=== PATIENT | female | born 1995 | race Caucasian/White ===

== ENCOUNTER 2022-08-13 13:35 | Emergency (ER) | payer OTHER, SELFPAY ==
[2022-08-13 13:41] VITALS: BP 107/70; PULSE 100; RESP 18; TEMP 36.6; O2SAT 100
--- NOTE | 2022-08-13 15:14 | ED.PREGNANCY ---
HPI - General Chief complaint: [employer] Stated complaint: needs to be checked Time Seen by Provider: 08/13/22 14:18 History of Present Illness HPI Narrative: 27-year-old female presents to the emergency room for a bunch of pills and a shot in my butt . Patient states that her ex-boyfriend went to the emergency room because he had green-yellow discharge coming from his penis . Patient states that she continues to have intercourse with him afterwards. Patient admits to not using any kind of control, and does not try to get . Patient states that her last menstrual cycle was over 1 month ago. Patient denies any dysuria or vaginal discharge, vaginal bleeding or abdominal pain. Related Data Allergies Allergy/AdvReac Type Severity Reaction Status Date / Time No Known Allergies Allergy Unknown Verified 08/13/22 15:27 Review of Systems Review of Systems: CONSTITUTIONAL: Denies fever, chills, or sweats. EYES: Denies visual changes, redness, or discharge. ENT: Denies rhinorrhea, congestion, sore throat, or otalgia. CARDIOVASCULAR: Denies chest pain, palpitations, or edema. RESPIRATORY: Denies cough or dyspnea. GASTROINTESTINAL: Denies abdominal pain, nausea, vomiting, or diarrhea. GENITOURINARY: Denies dysuria or hematuria. SKIN: Denies rash or itching. MUSCULOSKELETAL: Denies back pain, joint pain, or myalgia. NEUROLOGIC: Denies headache, numbness, dizziness, or weakness. PSYCHIATRIC: Denies anxiety or depression. [facility] Surgical History Surgical History History of nasal surgery Social History Social History Gender identity (if verbalized by the patient): Female Exam Narrative: GENERAL: Well-appearing, well-nourished, no physical limitations, and in no acute distress. HEAD: Normocephalic, atraumatic. CHEST: Clear to auscultation. No respiratory distress. No wheezes rales or rhonchi. HEART: Regular rate and rhythm. No murmur heard. Normal peripheral pulses. ABDOMEN: Soft, nontender, nondistended, normal active bowel sounds. : Normal external female exam. Moderate amount of thick white discharge. Cervical os is pink and closed. No masses or lesions tenderness. No CMT EXTREMITIES: Normal range of motion. No edema. No clubbing or cyanosis SKIN: Warm, dry, no rash. No noted wounds NEURO: No focal deficits. Alert and oriented x3. MAEW. CN's II-XI intact bilaterally, normal gait PSYCH: Cooperative. Normal mood and affect. Course Vital Signs Vital signs: Vital Signs Temperature 36.6 C 08/13/22 13:41 Pulse Rate 100 08/13/22 13:41 Respiratory Rate 18 08/13/22 13:41 Blood Pressure 107/70 08/13/22 13:41 Pulse Oximetry 100 08/13/22 13:41 Temperature 36.6 C 08/13/22 13:41 Pulse Rate 100 08/13/22 13:41 Respiratory Rate 18 08/13/22 13:41 Blood Pressure 107/70 08/13/22 13:41 Pulse Oximetry 100 08/13/22 13:41 Discharge Plan Discharge Clinical Impression: Exposure to STD Patient Disposition: Home, Self-Care Condition: Stable Instructions: Antibiotic Form, Sexually Transmitted Diseases (ED) Prescriptions: New doxycycline monohydrate 100 mg capsule 100 mg PO BID 7 Days Qty: 14 0RF No Action ibuprofen [IBU] 600 mg tablet 600 mg PO Q6H PRN (Reason: fever or pain) Qty: 5 0RF Follow-up/Referrals: UNKNOWN,DOCTOR [Primary Care Provider] - Time of Disposition: 16:02
[2022-08-13] MEDS: metroNIDAZOLE 250 MG TABLET 2000 MG PO (16:20)
[2022-08-13] MEDS: cefTRIAXone 1 GM VIAL 0.5 GM IM (16:21)
[2022-08-13] MEDS: DOXYCYCLINE HYCLATE 100 MG TABLET PO (16:21)
[2022-08-13 16:29] LABS: Add Urine Microscopic? YES; Appearance Urine Clear (Clear); Bacteria Urine Trace /hpf; Bilirubin Urine Negative (Negative); Blood Urine Negative (Negative); Color Urine Yellow (Yellow); Glucose Urine UA Negative (Negative); Ketones Urine Negative (Negative); Leukocyte Esterase Ur Negative LEU/UL (Negative); Mucus Urine Heavy /lpf; Nitrate Urine Negative (Negative); Protein Urine 1+ mg/dL (Negative); RBC Urine 0-2 /hpf (0-2); Specific Grav Ur 1.024 (1.001-1.035); Squamous Epithelial Cell Urine Rare /hpf (Few); Urobilinogen Urine Negative mg/dL (<2.0); WBC Urine 0-3 /hpf
== END 2022-08-13 16:30 | disposition home or self-care (01) ==
LOC: ANHED 16:14
PROVIDERS: Emergency Provider Nurse Practitioner Family
DX: Z20.2 Contact with and (suspected) exposure to infections with a predominantly sexual mode of transmission (principal)
CPT/HCPCS: 81001; 87491; 87591; 87808; 96372; 99284; A9270; J0696

== ENCOUNTER 2023-10-19 20:18 | Emergency (ER) | payer OTHER, SELFPAY ==
[2023-10-19 20:21] VITALS: BP 123/82; PULSE 110; RESP 16; TEMP 36.4; O2SAT 100
[2023-10-19 21:43] LABS: Appearance Urine Clear (Clear); Bacteria Urine None Seen /hpf; Bilirubin Urine Negative (Negative); Blood Urine Negative (Negative); Color Urine Yellow (Yellow); Glucose Urine UA Negative (Negative); Ketones Urine Negative (Negative); Leukocyte Esterase Ur Negative LEU/UL (Negative); Nitrate Urine Negative (Negative); Non Pathogenic Casts 0-2; Protein Urine 1+ mg/dL (Negative); RBC Urine 0-2 /hpf (0-2); Specific Grav Ur 1.022 (1.001-1.035); Squamous Epithelial Cell Urine Occasional /hpf (Few); Urobilinogen Urine 0.2 mg/dL (<2.0); WBC Urine 0-5 /hpf; pH Urine 6.5 (5.0-9.0)
[2023-10-19 21:54] LABS: Add Urine Microscopic? YES
[2023-10-19 23:09] LABS: Chlamydia trachomatis NOT DETECTED (NOT DETECTE); Neisseria gonorrhoeae PCR DETECTED (NOT DETECTE)
--- NOTE | 2023-10-19 23:31 | ED.GENADULT ---
HPI - General Adult General Chief complaint: Recheck/Abnormal Lab/Rx Stated complaint: std check Time Seen by Provider: 10/19/23 21:18 Source: patient Mode of arrival: ambulatory Limitations: no limitations History of Present Illness HPI narrative: Patient is a 28-year-old female who presents to the ED for STD check. Patient reports she has been sexually active with the father of her children who has been having penile discharge over the last several days. Wanting to be evaluated for STDs. Patient denies any symptoms. Denies abnormal vaginal discharge, dysuria, hematuria, abdominal pain, N/V, fevers. Related Data Allergies Allergy/AdvReac Type Severity Reaction Status Date / Time No Known Allergies Allergy Unknown Verified 08/13/22 15:27 Review of Systems Review of Systems: CONSTITUTIONAL: Denies fever, chills, or sweats. GASTROINTESTINAL: Denies abdominal pain, nausea, vomiting, or diarrhea. GENITOURINARY: Denies dysuria or hematuria. All systems reviewed & are unremarkable except as noted in HPI and below PMFSH Surgical History Surgical History History of nasal surgery Social History Social History Gender identity (if verbalized by the patient): Female Exam Narrative: GENERAL: Well appearing, well-nourished, non-toxic, in no acute distress. RESPIRATORY: Airway patent, respirations nonlabored. CARDIOVASCULAR: Regular rate and rhythm without murmurs, rubs, or gallops. ABDOMINAL: Soft, nontender, nondistended. Normoactive BS. MUSCULOSKELETAL: Moves all extremities. No gross deformities. SKIN: Warm, dry, normal color. NEURO: A&O X3. Speech clear. PSYCHIATRIC: Appropriate mood and affect. Normal interaction. Course Vital Signs Vital signs: Vital Signs Temperature 97.5 F L 10/19/23 20:21 Pulse Rate 110 H 10/19/23 20:21 Respiratory Rate 16 10/19/23 20:21 Blood Pressure 123/82 10/19/23 20:21 Pulse Oximetry 100 10/19/23 20:21 Oxygen Delivery Room Air 10/19/23 20:21 Temperature 97.5 F L 10/19/23 20:21 Pulse Rate 110 H 10/19/23 20:21 Respiratory Rate 16 10/19/23 20:21 Blood Pressure 123/82 10/19/23 20:21 Pulse Oximetry 100 10/19/23 20:21 Oxygen Delivery Room Air 10/19/23 20:21 Medical Decision Making MDM Narrative Medical decision making narrative: Gonorrhea positive. Patient given treatment in the ED, will be discharged on doxycycline. [facility] testing if needed. Advised to avoid further sexual intercourse until fully treated and received test of cure. Given return precautions. Medical Records Medical records reviewed: Yes I reviewed the external patient's medical records. Vital Signs Vital Signs: Vital Signs Temperature 97.5 F L 10/19/23 20:21 Pulse Rate 110 H 10/19/23 20:21 Respiratory Rate 16 10/19/23 20:21 Blood Pressure 123/82 10/19/23 20:21 Pulse Oximetry 100 10/19/23 20:21 Oxygen Delivery Room Air 10/19/23 20:21 Temperature 97.5 F L 10/19/23 20:21 Pulse Rate 110 H 10/19/23 20:21 Respiratory Rate 16 10/19/23 20:21 Blood Pressure 123/82 10/19/23 20:21 Pulse Oximetry 100 10/19/23 20:21 Oxygen Delivery Room Air 10/19/23 20:21 Lab Data Lab results reviewed: Yes I reviewed the patient's lab results. Labs: Lab Results 10/19/23 Range/Units 21:33 Urine Color Yellow (Yellow) Urine Appearance Clear (Clear) Urine pH 6.5 (5.0-9.0) Ur Specific [place] 1.022 (1.001-1.035) Urine Protein 1+ H (Negative) mg/dL Urine Glucose (UA) Negative (Negative) mg/dL Urine Ketones Negative (Negative) mg/dL Ur Blood (Man) Negative (Negative) Urine Nitrate Negative (Negative) Urine Bilirubin Negative (Negative) Urine Urobilinogen 0.2 (<2.0) mg/dL Leukocyte Esterase Rfl Negative (Negative) SATISH/UL Urine RBC 0-2 (0-2)
[2023-10-19] MEDS: cefTRIAXone 1 GM VIAL 0.5 GM IM (23:51)
[2023-10-19] MEDS: DOXYCYCLINE HYCLATE 100 MG TABLET PO (23:51)
[2023-10-19] MEDS: metroNIDAZOLE 500 MG TABLET 2000 MG PO (23:52)
== END 2023-10-19 23:57 | disposition home or self-care (01) ==
PROVIDERS: Emergency Provider Physician Assistant
DX: A54.9 Gonococcal infection, unspecified (principal)
CPT/HCPCS: 81001; 87491; 87591; 96372; 99284; A9270; J0696

== ENCOUNTER 2024-05-29 19:05 | Emergency (ER) | payer OTHER, SELFPAY ==
--- NOTE | ~2024-05-29 | US_ITS ---
EXAMINATION: US OB limited DATE: 05/29/2024 23:11 INDICATION: 13 weeks, no previous US, cramping. TECHNIQUE: Real-time ultrasound of the pelvis was performed. COMPARISON: None. FINDINGS: There is a single living fetus in vertex presentation, longitudinal lie. The placenta is anterior. F etal heart rate is 157 bpm. The following biometric data were obtained: Biparietal diameter (BPD): 2.56 cm; head circumference (HC): 10.34 cm; abdominal circumference (AC): 7.53 cm; femur length (FL): 1.08 cm. These measurements are concordant. Estimated weight is 81.83 g +/- 12.28 g, which correlates with the 41.7 percentile when 11/30/19 25 is used as estimated date of delivery. As single measurements, these parameters are each equal to the following estimated gestational ages w ith ranges of +/- 2 standard deviations: BPD: 14 weeks 3 days +/- 1 weeks 1 days. HC: 14 weeks 6 days +/- 1 weeks 1 days. AC: 14 weeks 0 days +/- 1 weeks 5 days. FL: 13 weeks 1 days +/- 1 weeks 3 days. estimated gestational age based solely on measurements from this exam is 14 weeks 1 days +/- 1 weeks 0 days. IMPRESSION: Single living fetus in vertex presentation. Estimated weight 81.83 g +/- 12.28 g. KOLBY by ultrasound 11/26/2024. Reviewed, dictated and finalized at location K.
[2024-05-29 19:31] VITALS: BP 116/70; PULSE 80; RESP 16; TEMP 36.4; O2SAT 100
[2024-05-29 20:10] LABS: Basophils Percent Auto 0.3 % (0.2-1.2); Eosinophils Absolute Auto 0.1 K/mm3 (0-0.3); Eosinophils Percent Auto 1.1 % (0-4.4); Hematocrit 37.3 % (37.0-47.0); Hemoglobin 12.4 g/dL (12.0-15.0); Immature Granulocyte Absolute 0.02 K/mm3 (0.00-0.031); Immature Granulocyte Percent A 0.3 % (0-0.5); Lymphocytes Absolute Auto 1.64 K/mm3 (0.9-3.2); Lymphocytes Percent Auto 25.5 % (18.3-44.2); Mean Corpuscular HGB Conc 33.2 g/dl (32-36); Mean Corpuscular Hemoglobin 30.5 pg (26-34); Mean Corpuscular Volume 91.6 fl (80-100); Mean Platelet Volume 10.2 fl (7.4-10.4); Monocytes Absolute Auto 0.3 K/mm3 (0.1-0.6); Monocytes Percent Auto 5.3 % (2.6-8.5); Neutrophils Absolute Auto 4.3 K/mm3 (1.3-6.7); Neutrophils Percent Auto 67.5 % (45.5-73.1); Platelet Count Result 234 k/mm3 (150-375); Red Blood Count 4.07 M/mm3 (4.2-5.4); Red Cell Distribution Width 13.8 % (11.5-14.5); White Blood Count 6.4 K/mm3 (4.5-10.0)
[2024-05-29 20:12] LABS: Appearance Urine Clear (Clear); Bilirubin Urine Negative (Negative); Blood Urine Negative (Negative); Color Urine Yellow (Yellow); Glucose Urine UA Negative (Negative); Ketones Urine Negative (Negative); Leukocyte Esterase Ur Negative LEU/UL (Negative); Nitrate Urine Negative (Negative); Protein Urine Negative (Negative); Specific Grav Ur 1.019 (1.001-1.035); Urobilinogen Urine 0.2 mg/dL (<2.0)
[2024-05-29 20:13] LABS: Add Urine Microscopic? NO
[2024-05-29 20:21] LABS: Alanine Aminotransferase 15 U/L (6-35); Albumin Level 4.5 g/dL (3.5-5.1); Alkaline Phosphatase 62 U/L (38-126); Anion Gap 11 mmol/L (4-12); Aspartate Amino Transferase 27 U/L (14-36); Bilirubin,Total 0.3 mg/dL (0.2-1.3); Blood Urea Nitrogen 9 mg/dL (7-17); Calcium 9.2 mg/dL (8.4-10.2); Carbon Dioxide 25 mmol/L (22-30); Chloride 98 mmol/L (98-107); Estimated CRCL calculation 116 ml/min; Estimated Glomerular Filt Rate > 60; Glucose 80 mg/dL (65-110); Lipase 89 U/L (23-300); Potassium 3.5 mmol/L (3.4-5.0); Sodium 134 mmol/L (137-145)
--- NOTE | 2024-05-30 01:08 | ED.ABDPAIN ---
HPI - Abdominal Pain General Chief Complaint: Abdominal Pain Stated Complaint: 13 weeks & cramping Time Seen by Provider: 05/30/24 00:02 Source: patient Mode of arrival: ambulatory Limitations: no limitations History of Present Illness HPI narrative: Patient is a 29-year-old female who presents the ED with report of lower abdominal cramping. Patient reports she is approximately 13-14 weeks gestation by last normal menstrual period. She is , history of 2 previous miscarriages, 1 elective . Patient reports she has not had any care for this yet, but is scheduled to see an OBGYN with [facility] next week. She reports over the last 2-3 days, she has had intermittent lower abdominal cramping. She did not want to wait for her appointment next week and decided to come here for an ultrasound today. Denies any vaginal bleeding. Does report nausea, increased urination, increased hunger. Related Data Allergies Allergy/AdvReac Type Severity Reaction Status Date / Time No Known Allergies Allergy Unknown Verified 08/13/22 15:27 Review of Systems Review of Systems: CONSTITUTIONAL: Denies fever, chills, or sweats. GASTROINTESTINAL: See HPI. GENITOURINARY: See HPI. MUSCULOSKELETAL: Denies back pain, extremity pain, myalgia. All systems reviewed & are unremarkable except as noted in HPI and below PMFSH Surgical History Surgical History History of nasal surgery Social History Social History Gender identity (if verbalized by the patient): Female Exam Narrative: GENERAL: Well appearing, well-nourished, non-toxic, in no acute distress. HEAD: Normocephalic, atraumatic. RESPIRATORY: Airway patent, respirations nonlabored. Clear to auscultation bilaterally, no rales, rhonchi, wheezing. CARDIOVASCULAR: Regular rate and rhythm without murmurs, rubs, or gallops. ABDOMINAL: Soft, mild tenderness throughout lower abdomen, uterus just barely gravid below umbilicus, nondistended. Normoactive BS. MUSCULOSKELETAL: Moves all extremities. No gross deformities. SKIN: Warm, dry, normal color. NEURO: A&O X3. Speech clear. PSYCHIATRIC: Appropriate mood and affect. Normal interaction. Course Vital Signs Vital signs: Vital Signs Temperature 97.6 F 05/29/24 19:31 Pulse Rate 80 05/29/24 19:31 Respiratory Rate 16 05/29/24 19:31 Blood Pressure 116/70 05/29/24 19:31 Pulse Oximetry 100 05/29/24 19:31 Temperature 97.6 F 05/29/24 19:31 Pulse Rate 80 05/29/24 19:31 Respiratory Rate 16 05/29/24 19:31 Blood Pressure 116/70 05/29/24 19:31 Pulse Oximetry 100 05/29/24 19:31 MDM - Abdominal Pain MDM Narrative Medical decision making narrative: Patient presented to ED with lower abdominal cramping, currently 13-14 weeks gestation, no previous ultrasound. . Beta quant here over 76K. Laboratory studies are unremarkable. UA negative. Ob ultrasound was obtained and showing single live IUP, good heart tones, no abnormalities noted. Patient was updated on lab and imaging findings, reassuring ultrasound. Advised to have close follow-up with OBGYN for further evaluation. She does have an appointment next week. Given return precautions. Discharged in stable condition. Medical Records Attestation: I reviewed the patient's medical records. Lab Data Attestation: I reviewed the patient's lab results. 05/29/24 19:49 05/29/24 19:49 Labs: Lab Results 05/29/24 Range/Units 19:49 WBC 6.4 (4.5-10.0) K/mm3 RBC 4.07 L (4.2-5.4) M/mm3 Hgb 12.4 (12.0-15.0) g/dL Hct 37.3 (37.0-47.0) % MCV 91.6 (80-100) fl MCH 30.5 (26-34) pg MCHC 33.2 (32-36) g/dl RDW 13.8 (11.5-14.5) % Plt Count 234 (150-375) k/mm3 MPV 10.2 (7.4-10.4) fl Immature Gran % (Auto) 0.3 (0-0.5) % Neut % (Au
== END 2024-05-30 01:14 | disposition home or self-care (01) ==
PROVIDERS: Emergency Medicine; Emergency Provider Physician Assistant
DX: O26.892 Other specified pregnancy related conditions, second trimester (principal); Z3A.14 14 weeks gestation of pregnancy; R10.30 Lower abdominal pain, unspecified
CPT/HCPCS: 36415; 76815; 80053; 81003; 81025; 83690; 84702; 85025; 99284

== ENCOUNTER 2024-07-31 10:09 | Outpatient (CLI) | payer OTHER, SELFPAY ==
--- NOTE | ~2024-07-31 | US_ITS ---
EXAMINATION: US OB /maternal detail DATE: 07/31/2024 11:58 INDICATION: Encounter for supervision of normal . TECHNIQUE: Real-time ultrasound of the pelvis was performed. COMPARISON: None. FINDINGS: There is a single living fetus in vertex presentation. The placenta is anterior, 7.1 cm from the cer vix. The cervical length is 4.4 cm on transabdominal images, which is normal. heart rate is 152 beats per minute (bpm). The amniotic fluid index is 18.8 cm, which is normal. The following biometric data were obtained: Biparietal diameter (BPD): 5.6 cm; head circumference (HC): 20.9 cm; abdominal circumference (AC): 18 .2 cm; femur length (FL): 4.2 cm. These measurements are concordant. Estimated weight is 576 g +/- 86 g, which correlates with the 76th percentile when 11/30/24 is u sed as estimated date of delivery. As single measurements, these parameters are each equal to the following estimated gestational ages: BPD: 23 weeks 0 days. HC: 23 weeks 0 days. AC: 23 weeks 0 days. FL: 23 weeks 4 days. estimated gestational age based solely on measurements from this exam is 23 weeks 1 days +/- 1 weeks 4 days. The cerebral ventricles, cerebellum, cisterna magna, lip, and spine are normal. The heart is normal. The diaphragm, stomach, kidneys, and bladder are normal. There are two umbilical arteries to yield a 3-vessel cord. The cord insertion is normal. IMPRESSION: 1. Single living fetus in vertex presentation. 2. Estimated weight is 576 g +/- 86 g, which correlates with the 76th percentile when 11/30/24 is used as estimated date of delivery. Note that estimated date of delivery based on the ultrasound f rom 05/29/2024 would be 11/26/2024. 3. Normal anatomic survey. Reviewed, dictated and finalized at location A. IMPRESSION: 1. Single living fetus in vertex presentation. 2. Estimated weight is 576 g +/- 86 g, which correlates with the 76th pe rcentile when 11/30/24 is used as estimated date of delivery. Note that estimate d date of delivery based on the ultrasound from 05/29/2024 would be 11/26/2024. 3. Normal anatomic survey.
== END 2024-07-31 10:10 | disposition home or self-care (01) ==
LOC: ANHIMG 10:10
PROVIDERS: Visit Provider Obstetrics & Gynecology
DX: Z34.92 Encounter for supervision of normal pregnancy, unspecified, second trimester (principal); Z3A.23 23 weeks gestation of pregnancy
CPT/HCPCS: 76805